=== PATIENT | female | born 1945 | race Caucasian/White ===

== ENCOUNTER → 2016-10-03 | Outpatient (CLI) | payer OTHER, MEDICAID ==
[2015-08-18 09:32] VITALS: BP 111/50
--- NOTE | 2016-10-03 15:55 | US ---
HISTORY: Chronic renal disease. Study: Renal ultrasound Comparison: None available. Technique: Multiple martinez scale and color flow Doppler images of the kidneys were obtained. The eloina on of the urinary bladder was evaluated as well. Findings: The right kidney demonstrates increased echotexture. The right kidney measures 9.2 cm. Simple appear ing 3.2 cm cyst within the right lower pole. No focal mass, hydronephrosis, or stones identified. The left kidney demonstrates increased echotexture. The left kidney measures 10.7 cm. No focal mass, hydronephrosis, or stone can be seen within the left kidney. The region of the urinary bladder is grossly unremarkable. IMPRESSION: 1. Increased echogenicity of the bilateral kidneys likely representing chronic renal disease. 2. 3.2 cm simple cyst within the right kidney. Reported By:
--- NOTE | 2016-10-04 12:12 | MG ---
HISTORY: SCREENING Comparison: None FINDINGS: Bilateral CC and MLO projections of the right and left breast were obtained. Scattered fibroglandul ar tissue is seen to be present. No suspicious architectural distortion, mass or clustered microcal cifications can be observed to suggest malignancy. No skin thickening or nipple retraction is appre ciated. No pathological lymphadenopathy can be identified. Benign-appearing calcifications are not ed within the right and left breast. IMPRESSION: NO RADIOGRAPHIC EVIDENCE OF MALIGNANCY. ACR CATEGORY 2 - benign findings. FOLLOW-UP EXAM 1 YEAR. Diagnostic CAD was utilized and reviewed. * 0 (ZERO) - ASSESSMENT INCOMPLETE; ADDITIONAL IMAGING IS NEEDED. * 1/ (ONE) - NEGATIVE. * 2/II (TWO) - BENIGN FINDINGS. * 3/III (THREE) - PROBABLY BENIGN FINDING; SHORT INTERVAL FOLLOW-UP SUGGESTED. * 4/IV (FOUR) - SUSPICIOUS ABNORMALITY; BIOPSY SHOULD BE CONSIDERED. * 5/V (FIVE) - HIGHLY SUSPICIOUS OF MALIGNANCY; BIOPSY SHOULD BE PERFORMED. A NEGATIVE X-RAY REPORT SHOULD NOT DELAY BIOPSY IF A DOMINANT OR CLINICALLY SUSPICIOUS MASS IS PRESENT; 4 TO 8 PERCENT OF CANCERS ARE NOT IDENTIFIED BY X-RAY. A NEG ATIVE REPORT MAY REINFORCE THE CLINICAL IMPRESSION. ADENOSIS AND DENSE BREASTS MAY OBSCURE AN UNDER LYING NEOPLASM. Reported By:
== END | disposition home or self-care (01) ==
LOC: RAD 14:28
PROVIDERS: ATTEND Internal Medicine
DX: Z12.31 Encounter for screening mammogram for malignant neoplasm of breast (principal); N18.4 Chronic kidney disease, stage 4 (severe); N28.1 Cyst of kidney, acquired
CPT/HCPCS: 76770; 77067

== ENCOUNTER 2017-04-17 18:13 | Emergency (ER) | payer OTHER, MEDICAID ==
[2017-04-17 18:14] VITALS: BP 154/66
[2017-04-17 18:43] LABS: ABG BASE EXCESS -9.1 mmol/L (-2.0-2.0); ABG HCO3 20.2 mmol/L (22-26)
--- NOTE | 2017-04-17 18:44 | DR.GENAD ---
HPI - Complaint/Symptoms Chief Complaint Doctors Comments: Patient presented to the ED in full code with ACLS being performed by EMS. EMS was called at 1734 by family member and on the scene at 1749 with CPR started at 1750. Patient arrived to the ED at 1816 with CPR in progress. She had received two doses of epinephrine 1:10,000 and three additional doses were given during ACLS in addition to lidocaine,sodium bicarbonate,amiodarone,dopamine, see recorder notes. Patient developed a sinus rhythmn, ETT advanced 3cm s/p chest film, blood gases obtained. Patient was being stabalized s/p stopping chest compression and she became bradycardic not responding to ACLS; monitor showe PEA see rhythmn strip. Code was called a5 1805. Resuscitation followed protocol. See recorder notes. Family members were notified PMH - PMH Past Surgical History: Yes Surgical History: Cholecystectomy - Family History Family Medical History: Diabetes Mellitus, Cancer, CT, Coronary Artery Disease, Hypertension PE - Vital Signs Vitals: Blood Pressure [Left Arm] 154/66 Blood Pressure 154/66 ROR - Labs Reviewed Result Diagrams: 04/17/17 18:42 04/17/17 18:42 Laboratory: WBC 4.3 X10^3/uL (3.6-10.0) 04/17/17 18:42 RBC 3.24 X10^6/uL (3.5-5.4) L 04/17/17 18:42 Hgb 9.1 g/dL (12.0-16.0) L 04/17/17 18:42 Hct 28.6 % (36.0-47.0) L 04/17/17 18:42 MCV 88.3 fL (80.0-100.0) 04/17/17 18:42 MCH 28.2 pg (27.0-34.0) 04/17/17 18:42 MCHC 32.0 g/dL (33.0-35.0) L 04/17/17 18:42 RDW 16.5 % (11.6-16.5) 04/17/17 18:42 Plt Count 207 X10^3/uL (150.0-450.0) 04/17/17 18:42 Plt Count Comment Adequate (ADEQUATE) 04/17/17 18:42 MPV 9.4 fL (7.4-11.0) 04/17/17 18:42 Neut % 35.1 % (42.0-75.0) L 04/17/17 18:42 Lymph % 58.7 % (21.0-51.0) H 04/17/17 18:42 [place] % 2.7 % (0.0-13.0) 04/17/17 18:42 Eos % 1.4 % (0.9-2.9) 04/17/17 18:42 Baso % 2.1 % (0.2-1.0) H 04/17/17 18:42 Neut # 1.5 x10^3/uL (2.2-4.8) L 04/17/17 18:42 Lymph # 2.5 X10^3/uL (1.3-2.9) 04/17/17 18:42 [place] # 0.1 x10^3/uL (0.3-0.8) L 04/17/17 18:42 Eos # 0.1 x10^3/uL (0.0-0.2) 04/17/17 18:42 Baso # 0.1 X10^3/uL (0.0-0.1) 04/17/17 18:42 Absolute Nucleated RBC 3.4 /100WBC 04/17/17 18:42 Nucleated RBCs 5 04/17/17 18:42 Plt Morphology Comment Normal (NORMAL) 04/17/17 18:42 RBC Morphology Normal (NORMAL) 04/17/17 18:42 Sample Site Rrad 04/17/17 18:36 ABG pH 7.150 (7.35-7.45) L* 04/17/17 18:36 ABG pCO2 58.0 mmHg (35.0-45.0) H* 04/17/17 18:36 ABG pO2 22.0 mmHg (80.0-100.0) L* 04/17/17 18:36 ABG HCO3 20.2 mmol/L (22-26) L 04/17/17 18:36 ABG O2 Saturation 22.0 % (90-100) L* 04/17/17 18:36 ABG Base Excess -9.1 mmol/L (-2.0-2.0) L 04/17/17 18:36 Sinan Test Pos 04/17/17 18:36 A-a Gradient 619.0 mmHg 04/17/17 18:36 FiO2 100.000 04/17/17 18:36 Blood Gas Comments Sacha well 04/17/17 18:36 Sodium 141 mmol/L (136-145) 04/17/17 18:42 Corrected Sodium 144 mmol/L (136-145) 04/17/17 18:42 Potassium 3.7 mmol/L (3.5-5.1) 04/17/17 18:42 Chloride 102 mmol/L (98-107) 04/17/17 18:42 Carbon Dioxide 16.9 mmol/L (21-32) L 04/17/17 18:42 BUN 27 mg/dL (7-18) H 04/17/17 18:42 Creatinine 4.35 mg/dL (0.55-1.02) H 04/17/17 18:42 Est GFR (MDRD) Af Amer 13 (>60) L 04/17/17 18:42 Est GFR (MDRD) Non-Af 11 (>60) L 04/17/17 18:42 Glucose 244 mg/dL (65-99) H 04/17/17 18:42 Calcium 7.6 mg/dL (8.5-10.1) L 04/17/17 18:42 Corrected Calcium 9.4 mg/dL (8.5-10.1) 04/17/17 18:42 Magnesium 2.3 mg/dL (1.7-2.9) 04/17/17 18:42 Total Bilirubin 0.60 mg/dL (0.2-1.0) 04/17/17 18:42 AST 1347 Units/L (15-37) H 04/17/17 18:42 ALT 426 Units/L (12-78) H 04/17/17 18:42 Alkaline Phosphatase 211 Units/L (46-116) H 04/17/17 18:42 Creatine Kinase 190 Units/L (26-192) 04/17/17 18:42 CK-MB (CK-2) 4.2 ng/mL (0-4.0) H* 04/17/17 18:42 CK/CKMB % Calc 2.2 % (<4) 04/17/17 18:42 Troponin I 1.90 ng/mL (0-1.5) H* 04/17/17 18:42 Total Protein 5.3 g/dL (6.4-8.2) L 04/17/17 18:42 Albumin 1.7 g/dL (3.4-5.0) L 04/17/17 18:42 Globulin 3.6 g/dL (2.5-4.5) 04/17/17 18:42 Albumin/Globulin Ratio 0.5 Ratio (1.1-2.1) L 04/17/17 18:42 Specimen Type Catherized urine 04/17/17 18:45 Urine Color Yellow (YELLOW) 04/17/17 18:45 Urine Appearance Cloudy (CLEAR) 04/17/17 18:45 Urine pH 6.0 (5.0 - 8.0) 04/17/17 18:45 Ur Specific [place] 1.020 (1.000-1.030) 04/17/17 18:45 Urine Protein 3+ (NEGATIVE) 04/17/17 18:45 Urine Glucose (UA) Negative (NEGATIVE) 04/17/17 18:45 Urine Ketones Negative (NEGATIVE) 04/17/17 18:45 Urine Occult Blood 2+ (NEGATIVE) 04/17/17 18:45 Urine Nitrite Negative (NEGATIVE) 04/17/17 18:45 Urine Bilirubin Negative (NEGATIVE) 04/17/17 18:45 Urine Urobilinogen 2+ (NORMAL) 04/17/17 18:45 Ur Leukocyte Esterase 2+ (NEGATIVE) 04/17/17 18:45 Urine RBC 7-10 /HPF (NEGATIVE) 04/17/17 18:45 Urine WBC 45-50 /HPF (NEGATIVE) 04/17/17 18:45 Ur Squamous Epith Cells Negative /HPF (NEGATIVE) 04/17/17 18:45 Urine Bacteria 4+ /HPF (NEGATIVE) 04/17/17 18:45 Ur Culture Indicated? Yes/culture set up 04/17/17 18:45 - Diagnosis Discharge Problem: - Discharge Plan Disposition: 20 Condition: Stable - Follow ups/Referrals Follow ups/Referrals: Sarah RIZOc [Primary Care Provider] - 3 days - Instructions
[2017-04-17 18:45] LABS: ABG ALLEN TEST POS
[2017-04-17] MEDS ORDERED: NS 1000 ML 1,000 ML ONE (18:45)
--- NOTE | 2017-04-17 18:46 | RAD ---
Chest, one view Indication: ETT placement Comparison: 11/16/2016 Findings: Overlying external devices limits evaluation. Given these limitations, there is stable card iomegaly without congestive failure. Right IJ dialysis catheter terminates over the cavoatrial juncti on. Tip of the ET tube terminates at the level of the clavicles. No pneumothorax is identified. There is no focal consolidation or significant effusion. Right humeral fixation hardware is noted. No defi nite acute osseous abnormality is identified. Impression: High positioning of the endotracheal tube, which could be advanced at least 3 more cm for more optima l positioning. Otherwise, no acute chest process, given limitations as above. Reported By:
[2017-04-17] MEDS ORDERED: NS 1000 ML 1,000 ML IV ONE (18:52)
[2017-04-17 18:53] LABS: BASOPHILS # (AUTO) 0.1 X10^3/uL (0.0-0.1); BASOPHILS % (AUTO) 2.1 % (0.2-1.0); EOSINOPHILS # (AUTO) 0.1 x10^3/uL (0.0-0.2); EOSINOPHILS % (AUTO) 1.4 % (0.9-2.9); HEMATOCRIT 28.6 % (36.0-47.0); HEMOGLOBIN 9.1 g/dL (12.0-16.0); LYMPHOCYTES # (AUTO) 2.5 X10^3/uL (1.3-2.9); LYMPHOCYTES % (AUTO) 58.7 % (21.0-51.0); MEAN CORPUSCULAR HEMOGLOBIN 28.2 pg (27.0-34.0); MEAN CORPUSCULAR VOLUME 88.3 fL (80.0-100.0); MEAN PLATELET VOLUME 9.4 fL (7.4-11.0); MONOCYTES # (AUTO) 0.1 x10^3/uL (0.3-0.8); MONOCYTES % (AUTO) 2.7 % (0.0-13.0); NEUTROPHILS # (AUTO) 1.5 x10^3/uL (2.2-4.8); NEUTROPHILS % (AUTO) 35.1 % (42.0-75.0); PLATELET COUNT 207 X10^3/uL (150.0-450.0); RED BLOOD COUNT 3.24 X10^6/uL (3.5-5.4); RED CELL DISTRIBUTION WIDTH 16.5 % (11.6-16.5); WHITE BLOOD COUNT 4.3 X10^3/uL (3.6-10.0)
[2017-04-17] MEDS ORDERED: SODIUM BICARBONATE 8.4% INJ ADULT IVP ONE (18:59)
[2017-04-17] MEDS ORDERED: DOPAMINE IV PREMIX 400 MG/250 ML 400 MG/250 ML BAG IV PRN (19:00)
[2017-04-17] MEDS ORDERED: CORDARONE INJ 150 MG VIAL IVP ONE (19:01)
[2017-04-17] MEDS ORDERED: ADRENALINE CHL INJ IVP ONE ×4 (19:04→19:06)
[2017-04-17] MEDS ORDERED: [UNRECOGNIZED DRUG - OTHER] IV PRN (19:09)
[2017-04-17 19:12] LABS: PLATELET MORPHOLOGY COMMENT NORMAL (NORMAL)
[2017-04-17 19:26] LABS: BILIRUBIN,URINE NEGATIVE (NEGATIVE); BLOOD/HEMOGLOBIN,URINE 2+ (NEGATIVE); GLUCOSE, URINE NEGATIVE (NEGATIVE); KETONES,URINE NEGATIVE (NEGATIVE); LEUKOCYTE ESTERASE ,URINE 2+ (NEGATIVE); NITRITES,URINE NEGATIVE (NEGATIVE); PROTEIN,URINE 3+ (NEGATIVE); UROBILINOGEN,URINE 2+ (NORMAL)
[2017-04-17 19:31] LABS: ALBUMIN 1.7 g/dL (3.4-5.0); CALCIUM 7.6 mg/dL (8.5-10.1); CARBON DIOXIDE 16.9 mmol/L (21-32); CKMB % 2.2 % (<4); COR CA(FOR HYPOALB) 9.4 mg/dL (8.5-10.1); CREATININE 4.35 mg/dL (0.55-1.02); MAGNESIUM 2.3 mg/dL (1.7-2.9); TOTAL PROTEIN 5.3 g/dL (6.4-8.2)
[2017-04-17 19:33] LABS: APPEARANCE,URINE CLOUDY (CLEAR); BACTERIA,URINE 4+ /HPF (NEGATIVE); COLOR,URINE YELLOW (YELLOW); SQUAMOUS EPITHELIAL CELL,UR NEGATIVE /HPF (NEGATIVE)
[2017-04-17 19:34] LABS: CREATINE KINASE MB 4.2 ng/mL (0-4.0)
[2017-04-17 19:35] LABS: TROPONIN I 1.9 ng/mL (0-1.5)
== END 2017-04-17 20:15 | disposition expired ==
LOC: ER 18:16
PROC: 0T9B70Z Drainage of Bladder with Drainage Device, Via Natural or Artificial Opening (ICD-10-PCS; principal; 2017-04-17)
PROC: 5A12012 Performance of Cardiac Output, Single, Manual (ICD-10-PCS; principal; 2017-04-17)
DX: I46.9 Cardiac arrest, cause unspecified (principal)
CPT/HCPCS: 36415; 36600; 51702; 71010; 80053; 81001; 82550; 82553; 82803; 83735; 84484; 85025; 87086; 87088; 87186; 93041; 96365; 96367; 96374; 96375; 99283; 99285; J0170; J1265; J3490